=== PATIENT | female | born 1970 ===

== ENCOUNTER 2022-05-15 05:55 | Day surgery (SDC) | payer OTHER ==
[~2022-05-15] VITALS: Ht 157.5 cm; Wt 74.8 kg
[~2022-05-15 05:55] MED LIST: WELLBUTRIN SR150 MG PO
[2022-05-15] MEDS ORDERED: MORGIDOX100 MG PO (10:36)
[2022-05-15] MEDS ORDERED: NAPR500T14 PO (10:36)
== END 2022-05-15 14:30 | disposition home or self-care (01) ==
LOC: CIR.AMB 05:55
PROVIDERS: ATTEND Obstetrics & Gynecology
DX: N92.0 Excessive and frequent menstruation with regular cycle (principal); N84.0 Polyp of corpus uteri; D25.0 Submucous leiomyoma of uterus; Z20.822 Contact with and (suspected) exposure to COVID-19; Z88.6 Allergy status to analgesic agent; Z91.018 Allergy to other foods; F12.90 Cannabis use, unspecified, uncomplicated